=== PATIENT | female | born 1930 | race Caucasian/White ===

== ENCOUNTER 2019-03-20 09:06 | Day surgery (SDC) | payer MEDICARE, OTHER ==
[~2019-03-20] VITALS: Ht 167.6 cm; Wt 87.1 kg
[2019-03-20] MEDS ORDERED: CARVEDILOL (10:36)
[2019-03-20] MEDS ORDERED: LASIX (10:36)
[2019-03-20] MEDS ORDERED: LEVOTHYROXINE (10:36)
[2019-03-20] MEDS ORDERED: PRINIVIL (10:36)
[2019-03-20] MEDS ORDERED: JANUMET (10:36)
[2019-03-20] MEDS ORDERED: POTASSIUM (10:36)
[2019-03-20] MEDS ORDERED: MULTAQ (10:36)
--- NOTE | 2019-03-20 10:36 | PREAC ---
Date/Time of Note Date/Time of Note DATE: 03/20/19 TIME: 10:35 Anesthesia Eval and Record Evaluation Time Pre-Procedure Interview DATE: 03/20/19 TIME: 10:35 Age 88 Sex female NPO: 8 hrs Preoperative diagnosis IRON DEFICIENCY ANEMIA Planned procedure EGD, COLONOSCOPY Past Medical History Past Medical History: Includes Cardio: HTN Endo: Diabetes, Hypothyroid Surgery & Anesthesia Issues No known issue Meds Anticoagulation: No Beta Randa within 24 hr: No Reason Beta Randa not given: Pt. not on B-Randa Meds reviewed: Yes Allergies Coded Allergies: No Known Allergy (Unverified , 03/20/19) Allergies Reviewed: Yes Labs/Studies Labs Reviewed: Reviewed by anesthesiologist test: N/A Pre-procedure Exam Airway: Adequate mouth opening, Adequate thyromental dist Mallampati: Mallampati II Teeth: Normal Lung: Normal Heart: Normal ASA Physical Status ASA physical status: 2 Emergency: None Planned Anesthetic General/MAC: MAC Planned Pain Management Parenteral pain med Pre-operative Attestations Prior to commencing anesthesia and surgery, the patient was re-evaluated, there was verification of: *The patient's identity *The results of appropriate recent lab work and preoperative vital signs *The above evaluation not changing prior to induction *Anesthetic plan, risk benefits, alternative and complications discussed with patient/family; questions answered; patient/family understands, accepts and wishes to proceed. Burt Joseph M.D. Mar 20, 2019 10:36
[2019-03-20] MEDS ORDERED: LIDOCAINE 100 MG SYRINGE ONE (10:37)
[2019-03-20] MEDS ORDERED: FENTAnyl 50 MCG/ML VIAL ONE (10:37)
[2019-03-20] MEDS ORDERED: PROPOFOL 20 ML ONE (10:37)
[2019-03-20 10:38] VITALS: Ht 167.6 cm; Wt 87.1 kg
[2019-03-20 11:00] VITALS: BP 194/93; PULSE 81; RESP 21
--- NOTE | 2019-03-20 11:46 | PAC ---
Date/Time of Note Date/Time of Note DATE: 03/20/19 TIME: 11:46 Post-Anesthesia Notes Post-Anesthesia Note Last documented vital signs HR 75 RR 124 BP 137/74 T 98 Activity: WNL Respiratory function: WNL Cardiovascular function: WNL Mental status: Baseline Pain reasonably controlled: Yes Hydration appropriate: Yes Nausea/Vomiting absent: Yes Burt Joseph M.D. Mar 20, 2019 11:46
[2019-03-20 12:07] VITALS: BP 152/76; PULSE 77; RESP 18
== END 2019-03-20 15:33 | disposition home or self-care (01) ==
LOC: GIL 09:06 → EDBD 10:30 → GIL 15:33
PROVIDERS: ATTEND Internal Medicine Gastroenterology
DX: K57.30 Diverticulosis of large intestine without perforation or abscess without bleeding (principal); K55.20 Angiodysplasia of colon without hemorrhage; D50.0 Iron deficiency anemia secondary to blood loss (chronic); K20.8 Other esophagitis; K29.80 Duodenitis without bleeding; K31.819 Angiodysplasia of stomach and duodenum without bleeding; I10 Essential (primary) hypertension; E11.9 Type 2 diabetes mellitus without complications; E03.9 Hypothyroidism, unspecified
CPT/HCPCS: 43239; 45380; 82962; 88305; 88312; J2001; J3010